=== PATIENT | male | born 1960 ===

== ENCOUNTER 2017-02-18 08:09 | Day surgery (SDC) | payer OTHER ==
[2017-02-18] MEDS ORDERED: Lactated Ringer's 500 ML IV ONE (08:38)
[2017-02-18 08:45] VITALS: TEMP 97.4
[2017-02-18] MEDS ORDERED: Propofol 10 mg/ml Inj (20 ML) ONE (09:20)
[2017-02-18 10:03] VITALS: BP 123/68; PULSE 77; RESP 12; O2SAT 100
== END 2017-02-18 10:13 | disposition home or self-care (01) ==
LOC: H.ENDO 08:09
PROVIDERS: ATTEND Internal Medicine Gastroenterology
DX: Z12.11 Encounter for screening for malignant neoplasm of colon (principal); K64.8 Other hemorrhoids